=== PATIENT | male | born 1965 | race Caucasian/White ===

== ENCOUNTER 2017-07-16 16:38 | Emergency (ER) | payer BC, OTHER ==
[2017-07-16 17:03] VITALS: BP 149/75
[2017-07-16] MEDS ORDERED: Acetaminophen/oxyCODONE 325-5 MG Tab PO ONE (17:14)
--- NOTE | 2017-07-16 17:19 | EDM.PDOC ---
ED HPI GENERAL MEDICAL PROBLEM - General Chief Complaint: Lower Extremity Injury/Pain Stated Complaint: RIGHT KNEE PAIN Time Seen by Provider: 07/16/17 17:05 Source of Information: Reports: Patient, Family History Limitations: Reports: No Limitations (s) - History of Present Illness INITIAL COMMENTS - FREE TEXT/NARRATIVE: 51-year-old male presents to the ED with severe right knee pain. States that yesterday he felt a pop in his knee and then today it popped again and became much worse. He is not able to rotate the knee in any fashion or form either laterally or medially as he has severe pain. He is keeping it perfectly straight he had recent arthroscopy done in [place] through the [place] system and was found a [id number] situation on the right knee and the only treatment really is a total knee replacement. He's had previous anterior cruciate repair and meniscectomy 2. Currently he is walking with the aid of a cane. 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.) Right Knee Pain Score (Numeric/FACES): 6 - Related Data Allergies Allergy/AdvReac Type Severity Reaction Status Date / Time valacyclovir Allergy Abdominal Verified 07/16/17 17:27 Pain venom-honey bee Allergy Swelling Verified 07/16/17 17:03 [bee venom (honey bee)] Home Meds: Home Meds Aspirin [Halfprin] 81 mg PO DAILY 02/26/15 [History] Hydrochlorothiazide 25 mg PO DAILY 07/28/15 [History] Multivitamin [Multivitamins] 1 each PO DAILY 07/28/15 [History] Metoprolol Succinate 37.5 mg PO DAILY 09/28/15 [History] Corolla-3 Fatty Acids [Fish Oil] 1,000 mg PO DAILY 12/27/15 [History] Loratadine [Claritin] 10 mg PO DAILY 07/16/17 [History] oxyCODONE HCl/Acetaminophen [Percocet 5-325 mg Tablet] 1 - 2 each PO Q4H PRN # 24 tablet 07/16/17 [Rx] Past Medical History Cardiovascular History: Reports: CAD, High Cholesterol, Hypertension Other Musculoskeletal History: L4 L5 herniated disc Psychiatric History: Reports: Anxiety - Past Surgical History HEENT Surgical History: Reports: Other (See Below) Cardiovascular Surgical History: Reports: Coronary Artery Bypass Musculoskeletal Surgical History: Reports: Arthroscopic Knee Social & Family History - Family History Cardiac: Reports: [place], Prior Cardiac Arrest, Stent - Caffeine Use Caffeine Use: Reports: None - Living Situation & Occupation Living situation: Reports: , with Spouse, with Family Occupation: Employed Review of Systems - Review of Systems Review Of Systems: See Below Constitutional: Reports: No Symptoms Eyes: Reports: No Symptoms Ears: Reports: No Symptoms Nose: Reports: No Symptoms Mouth/Throat: Reports: No Symptoms Respiratory: Reports: No Symptoms Cardiovascular: Reports: Other GI/Abdominal: Reports: No Symptoms (History of hypertension controlled with medication) Musculoskeletal: Reports: Neck Pain ( Patient positive back pain), Back Pain ( Both knees have chronic pain.), Joint Pain Skin: Reports: No Symptoms ( care problems with neck pain. ) Neurological: Reports: No Symptoms Psychiatric: Reports: No Symptoms ED EXAM, GENERAL - Physical Exam Exam: See Below Exam Limited By: No Limitations General Appearance: Alert, WD/WN, Mild Distress Extremities: Other (Examination of his right knee shows a very my small effusion. Anterior cruciate and posterior cruciate appears to be intact. He has full flexion and full extension of the joint. Any lateral movement such as internal or external rotation causes severe pain suggesting cartilage tear.) Neurological: Alert, Oriented, CN II-XII Intact, Normal Cognition Psychiatric: Normal Affect, Normal Mood Skin Exam: Warm, Dry, Intact, Normal Color, No Rash Course - Vital Signs Last Recorded V/S: Last Vital Signs Temp 37.0 C 07/16/17 17:00 Pulse 95 07/16/17 17:00 Resp 16 07/16/17 17:00 BP 149/75 H 07/16/17 17:00 Pulse Ox 98 07/16/17 17:00 - Orders/Labs/Meds Orders: Active Orders 24 hr Category Date Time Status Acetaminophen/oxyCODONE [Percocet 325-5 MG] Med 07/16/17 17:14 Once 2 tab PO ONETIME ONE - Radiology Interpretation Free Text/Narrative:: 51-year-old male brought to the ED by his after sudden pop and tearing sensation in his right knee. His similar sensation yesterday but was milder much worse today. States he has known [id number] situation with fragmented cartilage in his knee. He had arthroscopy performed by the [place] [facility] surgeon in [place] on June 24. He has pressures to show which show fragmentation of the residual cartilage particularly medially. X-rays were not felt to be useful today. Treatment is simply pain management. He will be able to get off of it elevated and ice it. He will continue Naprosyn 2 tablets every 8 hours for pain relief and inflammation Percocet tabs 5/325 one or 2 every 4-6 hours needed for pain relief. He is out of bed in contact with the [place] hospital or clinic and plans to pursue total knee replacement as soon as possible. In the meantime it' ll be pain management and short knee immobilizer and he will use his cane to partially weight-bear. Departure - Departure Time of Disposition: 17:29 Disposition: Home, Self-Care 01 Condition: Fair Clinical Impression: Internal derangement of multiple sites of right knee - Discharge Information Prescriptions: oxyCODONE HCl/Acetaminophen [Percocet 5-325 mg Tablet] 1 - 2 each PO Q4H PRN # 24 tablet PRN Reason: pain relief. Referrals: Chris Delong MD [Primary Care Provider] - Additional Instructions: Evaluation in the emergency him today in regards to severe pain right knee. Identified to be [id number] situation on arthroscopy done June 24. He pictures reveal there is numerous fractured pieces of cartilage within the joint there is no doubt that yesterday and today that cartilage fragmented further causing sudden onset of severe pain and small joint effusion Treatment is rest as much as possible. Elevate the leg as much as possible .Ice pack to the knee one half hour out of every 4 hours for the next few days. Knee immobilizer on during the day and off at night. Naprosyn 2 tablets every 8 hours to relieve pain and inflammation. Percocet tabs 5/3/25 are to be used when the pain is not controlled by Naprosyn alone or to aid sleep. He should not operate a motor vehicle if you're taking the stronger pain medications. Asked that you are going to need a total knee replacement as soon as this can be arranged through the [place] hospital system. Knee pain may settle down transiently but it's going to reoccur. - My Orders Last 24 Hours: My Active Orders 07/16/17 17:14 Acetaminophen/oxyCODONE [Percocet 325-5 MG] 2 tab PO ONETIME ONE - Assessment/Plan Last 24 Hours: My Active Orders 07/16/17 17:14 Acetaminophen/oxyCODONE [Percocet 325-5 MG] 2 tab PO ONETIME ONE
== END 2017-07-16 17:45 | disposition home or self-care (01) ==
LOC: JD.ED 16:38
DX: M23.91 Unspecified internal derangement of right knee (principal); I10 Essential (primary) hypertension; E78.00 Pure hypercholesterolemia, unspecified; I25.810 Atherosclerosis of coronary artery bypass graft(s) without angina pectoris; X50.9XXA Other and unspecified overexertion or strenuous movements or postures, initial encounter; Z79.899 Other long term (current) drug therapy; Z88.1 Allergy status to other antibiotic agents; Z79.82 Long term (current) use of aspirin
CPT/HCPCS: 99283; A9270